=== PATIENT | male | born 1985 | race Caucasian/White ===

== ENCOUNTER 2020-04-24 16:28 | Emergency (ER) | payer OTHER ==
[~2020-04-24] VITALS: Ht 180.3 cm; Wt 77.1 kg
--- NOTE | 2020-04-24 16:44 | NUR ---
, and lapd, in custody from senior care, slipped and fall, hit left side of the head hematoma, -KO. On room air, breathing evenly and unlabored. Kept comfortable, will continue to monitor accordingly.
[2020-04-24 17:14] LABS: BASOPHILS % (AUTO) 0.4 % (0.0-2.0); EOSINOPHILS % (AUTO) 2.1 % (0.0-6.0); HEMATOCRIT 41 % (39-51); HEMOGLOBIN 13.7 g/dL (13.5-17.5); LYMPHOCYTES # (AUTO) 1.3 /CMM (0.8-4.8); MEAN CORPUSCULAR HGB CONC 33 g/dl (31.0-36.0); MEAN CORPUSCULAR VOLUME 96 fL (80-96); MONOCYTES # (AUTO) 0.6 /CMM (0.1-1.30); NEUTROPHILS # (AUTO) 5.6 /CMM (1.8-8.9); NEUTROPHILS % (AUTO) 72.5 % (43.0-81.0); PLATELET COUNT (AUTO) 250 /CMM (150-450); RED BLOOD CELL COUNT(AUTO) 4.29 MIL/uL (4.5-6.0); WHITE BLOOD COUNT (AUTO) 7.7 K/uL (4.3-11.0)
[2020-04-24 18:52] VITALS: BP 120/81
--- NOTE | 2020-04-24 18:53 | NUR ---
patient left via ambulatory accompanied by , in no distress.
== END 2020-04-24 18:53 ==
LOC: ER 16:30
DX: S00.83XA Contusion of other part of head, initial encounter (principal); K92.1 Melena; W01.198A Fall on same level from slipping, tripping and stumbling with subsequent striking against other object, initial encounter; Y93.89 Activity, other specified; Y92.89 Other specified places as the place of occurrence of the external cause; Y99.8 Other external cause status
CPT/HCPCS: 36415; 70450-TC; 85025-TC